=== PATIENT | female | born 1960 | race Caucasian/White ===

== ENCOUNTER 2020-01-12 09:01 | Observation (INO) ==
[2020-01-12] MEDS ORDERED: ASPIRIN 325 MG TABLET PO STA (09:23)
[2020-01-12] MEDS ORDERED: NITROGLYCERIN 2% OINT 1 INCH/GM PACK TOP STA (09:23)
[2020-01-12 09:50] LABS: Basophils % 0.6 % (0.0-0.8); Eosinophils # 0.2 10*3/uL (0.0-0.87); Eosinophils % 2.3 % (0.00-10.9); Hemoglobin 13.3 GM/DL (12.0-16.0); Immature Granulocytes % 0.3 %; Immature Granulocytes Absolute 0.02 #; Lymphocytes # 2.2 10*3/uL (1.4-4.0); Mean Corpuscular HGB Conc 31.7 GM/DL (32-36); Mean Corpuscular Volume 95.7 FL (87-102); Mean Platelet Volume 9.2 FL (9.6-12.0); Monocytes % 4.4 % (1.7-12.7); Neutrophils % 59.4 % (38.7-73.9); Platelet Count 263 T/CUMM (130-400); Red Blood Count 4.39 MC/CUMM (3.8-5.5); Red Cell Distribution Width 13.2 % (9.3-17.3); White Blood Count 6.6 T/CUMM (4-12)
[2020-01-12 10:14] LABS: INR 0.9; PT Patient Result 9.7 SECS (9.6-12.2); Partial Thromboplastin Time 26.5 SECS (20.8-36.0)
[2020-01-12 10:18] LABS: Alanine Aminotransferase 15 U/L (13-56); Alkaline Phosphatase 89 U/L (45-117); Aspartate Amino Transferase 12 U/L (0-37); Bilirubin,Total < 0.39 MG/DL (0.2-1.0); Blood Urea Nitrogen 12 MG/DL (7-18); Calcium 8.7 MG/DL (8.5-10.1); Estimated Glom Filtration Rate 96 ML/MIN; Glucose 116 MG/DL (74-106); Osmolality,Calculated 288.7 MOS/KG (273-304); Total Protein 6.8 G/DL (6.4-8.3)
[2020-01-12] MEDS ORDERED: NICOTINE 21 MG/24 HR PATCH TRANSDERM PRN (12:10)
[2020-01-12] MEDS ORDERED: ACETAMINOPHEN 325 MG TABLET PO PRN (12:10)
[2020-01-12] MEDS ORDERED: ONDANSETRON 4 MG/2 ML VIAL IV PRN (12:10)
[2020-01-12] MEDS ORDERED: DOCUSATE SODIUM 100 MG CAPSULE PO PRN (12:10)
[2020-01-12] MEDS ORDERED: NITROGLYCERIN SL 0.4 MG TABLET SL PRN (12:10)
[2020-01-12] MEDS ORDERED: MORPHINE 4 MG/1 ML VIAL IV PRN (12:10)
[2020-01-12] MEDS ORDERED: ALBUTEROL 2.5 MG/3 ML NEB RESP TX PRN (12:20)
[2020-01-12] MEDS ORDERED: ENOXAPARIN 40 MG/0.4 ML SYRINGE SUBCUT SCH (12:30)
[2020-01-12] MEDS ORDERED: NF- (Umeclidinium-Vilanterol [Anoro Ellipta] 1 inh) INH SCH (12:30)
[2020-01-12 12:45] LABS: Risk Ratio 3.75; Thyroid Stimulating Hormone 1.13 uIU/ml (0.358-3.74); VLDL CHOLESTEROL 25.6 MG/DL
[2020-01-12] MEDS ORDERED: REGADENOSON 0.4 MG/5 ML SYRINGE IV ONE (17:30)
[2020-01-12] MEDS ORDERED: THEOPHYLLINE ER (24 HR) 400 MG CAPSULE PO SCH (21:00)
[2020-01-12] MEDS ORDERED: ARIPiprazole 10 MG TABLET PO SCH (21:00)
[2020-01-12] MEDS: PANTOPRAZOLE 40 MG TABLET PO SCH (21:39)
[2020-01-13 05:05] LABS: Basophils # 0.1 10*3/uL (0.0-0.2); Basophils % 0.8 % (0.0-0.8); Eosinophils # 0.2 10*3/uL (0.0-0.87); Eosinophils % 3.5 % (0.00-10.9); Hematocrit 42.6 VOL% (35.7-47.0); Hemoglobin 13.6 GM/DL (12.0-16.0); Immature Granulocytes % 0.3 %; Immature Granulocytes Absolute 0.02 #; Lymphocytes % 32.2 % (21.3-54.2); Mean Corpuscular HGB Conc 31.9 GM/DL (32-36); Mean Corpuscular Volume 94.7 FL (87-102); Mean Platelet Volume 9.5 FL (9.6-12.0); Monocytes % 6.2 % (1.7-12.7); Platelet Count 259 T/CUMM (130-400); Red Cell Distribution Width 13.1 % (9.3-17.3); White Blood Count 6.3 T/CUMM (4-12)
[2020-01-13 05:35] LABS: Osmolality,Calculated 281.3 MOS/KG (273-304)
[2020-01-13] MEDS ORDERED: VENLAFAXINE XR 75 MG CAPSULE PO SCH (09:00)
[2020-01-13] MEDS ORDERED: ASPIRIN CHEW 81 MG TABLET PO SCH (09:00)
[2020-01-13] MEDS: PANTOPRAZOLE 40 MG TABLET PO SCH (09:13)
[2020-01-13 09:19] VITALS: BP 126/74
== END 2020-01-13 11:14 | disposition home or self-care (01) ==
LOC: N.EDINP 09:01 → N.ED 09:01 → N.EDINP 13:24 → N.2W 13:28
PROVIDERS: ADMIT Internal Medicine; ATTEND Internal Medicine